=== PATIENT | female | born 1990 | race Caucasian/White ===

== ENCOUNTER 2017-01-19 17:58 | Emergency (ER) | payer SELFPAY ==
[~2017-01-19 17:58] MED LIST: NUBAIN INJ 10 ONE; STERILE WATER IRRIGATION IR ONE
[2017-01-19] MEDS ORDERED: XYLOCAINE 1 % (PLAIN) ONE (18:07)
[2017-01-19] MEDS ORDERED: NUBAIN INJ 10 IVP ONE (18:40)
[2017-01-19 18:44] VITALS: BP 148/74; BMI 21.2
--- NOTE | 2017-01-19 18:52 | DR.LACERAT ---
HPI - Time Seen Time seen: 18:00 - Primary Care Physician Primary Care Physician: pastor - HPI Comment HPI Comment: laceration - Complaints Chief Complaint Doctors Comments: laceration to right bowman. She sustained this after diving into home swimming pool to save her child Chief Complaint:: laceration to right leg - Reviewed Nurses Notes Reviewed: Yes - Source History Provided: Patient - Mode of Arrival Mode of Arrival: Ambulatory - Location Right Leg Laceration Measurement: 5 inches Wound's Depth, Shape: Superficial, Into muscle, Linear Laceration Explored: Clean, No Foreign Body Removed - Timing Onset of Chief Complaint: 01/19/17 - Context Mechanism: Fall Circumstance: Sporting Tetanus Vaccination: Yes - Severity Pain Severity: Moderate Bleeding:: Controlled - Associated Signs and Symptoms Associated Signs and Symptoms: None PMH - PMH Past Medical History: No Past Surgical History: No - Family History History of Family Medical Conditions: No Family Medical History: Cancer, [place], Coronary Artery Disease, Heart Failure, Hypertension - Social History Does patient currently use any type of tobacco product: No Have you used tobacco products in the last 12 months: No Type of Tobacco Use: None Does any household member use tobacco: No Alcohol Use: None Do you use any recreational Drugs:: No Lives With: Family Lives Where: Home - infectious screening In the last 2 months have you had wt loss of >10#?: NO Have you had fever, night sweats or hemotysis?: No Have you traveled outside the country in the last 6 months?: No Isolation: Standard ROS - Review of Systems Constitutional: No Symptoms Reported Eyes: No Symptoms Reported ENTM: No Symptoms Reported Respiratoy: No Symptoms Reported Cardiovascular: No Symptoms Reported Gastrointestinal/Abdominal: No Symptoms Reported Genitourinary: No Symptoms Reported Neurological: No Symptoms Reported Musculoskeletal: No Symptoms Reported, Other (laceration to rt. leg) Integumentary: No Symptoms Reported Hematologic/Lymphatic: No Symptoms Reported Endocrine: No Symptoms Reported Psychiatric: No Symptoms Reported All Other Systems: Reviewed and Negative PE - Vital Signs Vitals: Temperature 98.2 F Pulse Rate 87 Respiratory Rate 20 Blood Pressure 148/74 O2 Sat by Pulse Oximetry 98 - General Limitations: No Limitations General Appearance: Alert, In No Apparent Distress - Head Head Exam: Normal Inspection - Eyes Eye exam: Normal Appearance - ENT ENT Exam: Normal Exam - Neck Neck Exam: Normal Inspection - Chest Chest Inspection: Normal Inspection - Respiratory Respiratory Exam: Normal Lung Sounds Bilat Respiratory Exam: Bilateral Clear to Auscultation - Cardiovascular Cardiovascular Exam: Regular Rate, Normal Rhythm - Abdominal Exam Abdominal Exam: Normal Inspection, Normal Bowel Sounds, Soft - Extremities Extremities Exam: Normal Inspection - Back Back Exam: Normal Inspection - Neurologic Neurological Exam: Alert, Oriented X3 - Psychiatric Psychiatric Exam: Normal Affect, Normal Mood - Skin Skin Exam: Warm, Dry, Intact, Normal Color, Other (A linear laceration along the axis of the right leg, anteriorly on the bowman. ) Procedures - Laceration/Wound Repair Right Leg Wound Length (cm): 10 Wound's Depth, Shape: Superficial, Into muscle, Linear Wound Explored: no foreign body removed Irrigated w/ Saline (ccs): 10 Betadine Prep?: Yes Anesthesia: 1% Lidocaine Wound Repaired With: sutures Suture Size/Type: 3:0, [place] Number of Sutures: 5 Layer Closure?: No - Diagnosis Discharge Problem: Laceration - Discharge Plan Condition: Stable - Follow ups/Referrals Follow ups/Referrals: NFD,None [Primary Care Provider] - 3 days - Instructions Additional Instructions: Have sutures removed in 7 days
== END 2017-01-19 19:01 | disposition home or self-care (01) ==
LOC: ER 17:58
PROC: 0YQH0ZZ Repair Right Lower Leg, Open Approach (ICD-10-PCS; principal; 2017-01-19)
DX: S81.811A Laceration without foreign body, right lower leg, initial encounter (principal); W19.XXXA Unspecified fall, initial encounter; Y92.89 Other specified places as the place of occurrence of the external cause
CPT/HCPCS: 12004; 96365; 96374; 99282; 99283; A4217; A4222; J2001; J2300

== ENCOUNTER 2017-07-20 08:57 | Emergency (ER) | payer BC ==
[2017-07-20 09:02] VITALS: BP 128/84; BMI 21.9
--- NOTE | 2017-07-20 09:24 | DR.GENAD ---
HPI - PCP Primary Care Physician: Liliana HERNDON - HPI Comment HPI Comment: NO DRAINAGE. REDNESS EXTENDING AND PATIENT IS RUNNING FEVER. ON BACTRIM PAST 24HRS. - Complaint/Symptoms Chief Complaint Doctors Comments: ABSCESS AND CELLULITIS LEFT MONS PUBIS WITH FEVER. Chief Complaint:: PT. C/O ABSCESS TO LEFT SIDE OF PUBIC AREA. AREA IS REDDENED, FEVERED, AND PAINFUL. PT. STARTED TAKING BACTRIM YESTERDAY BUT HAS ONLY HAD 2 DOSES. - Nurses notes reviewed Nurses Notes Review: Yes - Source History Provided: Patient - Mode of Arrival Mode of Arrival: Ambulatory - Timing Onset of Chief Complaint: 07/18/17 Came on: Suddenly - Duration Duration: Constant Duration: Days - Severity Severity: Moderate PMH - PMH Past Medical History: No Past Surgical History: Yes Surgical History: Tonsillectomy - Family History History of Family Medical Conditions: Yes Family Medical History: Cancer, [place], Coronary Artery Disease, Heart Failure, Hypertension - Social History Does patient currently use any type of tobacco product: Yes Have you used tobacco products in the last 12 months: Yes Type of Tobacco Use: Cigarettes Does any household member use tobacco: Yes Alcohol Use: None Do you use any recreational Drugs:: No Lives With: Spouse Lives Where: Home - infectious screening In the last 2 months have you had wt loss of >10#?: NO Have you had fever, night sweats or hemotysis?: No Have you traveled outside the country in the last 6 months?: No Isolation: Standard ROS - Review of Systems Constitutional: Fever Eyes: No Symptoms Reported ENTM: No Symptoms Reported Respiratoy: No Symptoms Reported Cardiovascular: No Symptoms Reported Gastrointestinal/Abdominal: No Symptoms Reported Genitourinary: No Symptoms Reported Neurological: No Symptoms Reported Musculoskeletal: Muscle Pain Integumentary: Lesions (ABSCESS AND CELLULITIS LEFT MONS PUBIS. NO DRAINAGE. FLUCTUANT.) Hematologic/Lymphatic: No Symptoms Reported Endocrine: No Symptoms Reported All Other Systems: Reviewed and Negative PE - Vital Signs Vitals: Temperature 97.4 F Pulse Rate [Right Brachial] 92 Pulse Rate 133 Respiratory Rate 17 Blood Pressure 128/84 O2 Sat by Pulse Oximetry 100 - General Limitations: No Limitations General Appearance: Alert - Head Head Exam: Normal Inspection - Eyes Eye exam: Normal Appearance - ENT ENT Exam: Normal External Ear Exam External Ear Exam: Normal External Inspection TM/Canal Exam: Bilateral Normal Nose Exam: Normal Nose Exam Mouth Exam: Normal Inspection Throat Exam: Normal Inspection - Neck Neck Exam: Normal Inspection - Chest Chest Inspection: Symmetric Chest Wall Rise - Respiratory Respiratory Exam: Normal Lung Sounds Bilat Respiratory Exam: Bilateral Clear to Auscultation - Cardiovascular Cardiovascular Exam: Regular Rate, Normal Rhythm, Normal Heart Sounds - Abdominal Exam Abdominal Exam: Other (REDNESS AND ABSCESS LEFT MONS PUBIS AREA. NO DRAINAGE.) - Extremities Extremities Exam: Normal Inspection - Back Back Exam: Normal Inspection - Neurologic Neurological Exam: Alert, Oriented X3 - Psychiatric Psychiatric Exam: Normal Affect, Normal Mood - Skin Skin Exam: Erythema, Other (ABSCESS AND CELLULITIS LEFT MONS PUBIS. NO DRAINAGE. ) MDM - Additional Information Additional Information Obtained From: Family - Differential Diagnosis Differential Diagnosis: ABSCRSS AND CELLULITIS LT MONS PUBIS. Course - Treatment Treatment: SEE ORDERS. IM TORADOL, PAIN DECREASING. - Reevaluation 1st: Improved (PAIN IMPROVED.) - Education/Counseling Education/Counseling: Patient, Family, Education Educated On: Treatment, Diagnosis, Needs for Follow Up ROR - Labs Reviewed Laboratory Results Reviewed?: Yes Result Diagrams: 07/20/17 09:48 Laboratory: WBC 11.0 X10^3/uL (3.6-10.0) H 07/20/17 09:48 RBC 4.63 X10^6/uL (3.5-5.4) 07/20/17 09:48 Hgb 13.5 g/dL (12.0-16.0) 07/20/17 09:48 Hct 39.6 % (36.0-47.0) 07/20/17 09:48 MCV 85.6 fL (80.0-100.0) 07/20/17 09:48 MCH 29.1 pg (27.0-34.0) 07/20/17 09:48 MCHC 34.0 g/dL (33.0-35.0) 07/20/17 09:48 RDW 13.7 % (11.6-16.5) 07/20/17 09:48 Plt Count 222 X10^3/uL (150.0-450.0) 07/20/17 09:48 MPV 8.8 fL (7.4-11.0) 07/20/17 09:48 Neut % 78.6 % (42.0-75.0) H 07/20/17 09:48 Lymph % 15.1 % (21.0-51.0) L 07/20/17 09:48 [place] % 5.1 % (0.0-13.0) 07/20/17 09:48 Eos % 0.7 % (0.9-2.9) L 07/20/17 09:48 Baso % 0.5 % (0.2-1.0) 07/20/17 09:48 Neut # 8.7 x10^3/uL (2.2-4.8) H 07/20/17 09:48 Lymph # 1.7 X10^3/uL (1.3-2.9) 07/20/17 09:48 [place] # 0.6 x10^3/uL (0.3-0.8) 07/20/17 09:48 Eos # 0.1 x10^3/uL (0.0-0.2) 07/20/17 09:48 Baso # 0.1 X10^3/uL (0.0-0.1) 07/20/17 09:48 Absolute Nucleated RBC 0.0 /100WBC 07/20/17 09:48 Procedures - Incision and Drainage Blade Size: 11 I & D Procedure: betadine prep, sterile dressing applied, gauze wick placed Progress: 2CC PUS DRAINED WHEN I&D DONE FROM LEFT MONS PUBIS ABSCESS. - Diagnosis Discharge Problem: Abscess Cellulitis Qualifiers: Site of cellulitis: unspecified site Qualified Code(s): L03.90 - Cellulitis, unspecified - Discharge Plan Disposition: HOME, SELF-CARE Condition: Stable Prescriptions: Clindamycin HCl 300 mg PO Q6H #40 cap Ibuprofen [MOTRIN TAB 600 MG *] 600 mg PO TID PRN #30 tab PRN Reason: Pain/Inflammation Tramadol HCl 50 mg PO Q8H PRN #15 tablet PRN Reason: - Follow ups/Referrals Follow ups/Referrals: FAISAL HERNDON [Primary Care Provider] - 2 days - Instructions Instructions: Abscess, [id number], Cellulitis, Adult, [id number] Additional Instructions: RETURN TO ED IF WORSE.
[2017-07-20 10:01] LABS: BASOPHILS # (AUTO) 0.1 X10^3/uL (0.0-0.1); BASOPHILS % (AUTO) 0.5 % (0.2-1.0); EOSINOPHILS # (AUTO) 0.1 x10^3/uL (0.0-0.2); EOSINOPHILS % (AUTO) 0.7 % (0.9-2.9); HEMATOCRIT 39.6 % (36.0-47.0); HEMOGLOBIN 13.5 g/dL (12.0-16.0); LYMPHOCYTES # (AUTO) 1.7 X10^3/uL (1.3-2.9); LYMPHOCYTES % (AUTO) 15.1 % (21.0-51.0); MEAN CORPUSCULAR HEMOGLOBIN 29.1 pg (27.0-34.0); MEAN CORPUSCULAR VOLUME 85.6 fL (80.0-100.0); MEAN PLATELET VOLUME 8.8 fL (7.4-11.0); MONOCYTES # (AUTO) 0.6 x10^3/uL (0.3-0.8); MONOCYTES % (AUTO) 5.1 % (0.0-13.0); NEUTROPHILS # (AUTO) 8.7 x10^3/uL (2.2-4.8); NEUTROPHILS % (AUTO) 78.6 % (42.0-75.0); PLATELET COUNT 222 X10^3/uL (150.0-450.0); RED BLOOD COUNT 4.63 X10^6/uL (3.5-5.4); RED CELL DISTRIBUTION WIDTH 13.7 % (11.6-16.5)
[2017-07-20] MEDS ORDERED: TORADOL 60 MG VIAL IM ONE (10:09)
[2017-07-20] MEDS ORDERED: TORADOL 60 MG VIAL ONE (10:11)
== END 2017-07-20 10:24 | disposition home or self-care (01) ==
LOC: ER 09:05
PROC: 0H9AXZZ Drainage of Inguinal Skin, External Approach (ICD-10-PCS; principal; 2017-07-20)
DX: L02.214 Cutaneous abscess of groin (principal); L03.314 Cellulitis of groin
CPT/HCPCS: 10060; 36415; 85025; 87040; 87070; 87075; 87077; 87186; 96372; 99282; 99285; J1885